=== PATIENT | female | born 1955 | race Two or more races ===

== ENCOUNTER 2021-10-02 05:30 | Day surgery (SDC) | payer OTHER ==
[~2021-10-02 05:30] MED LIST: COQ-1030 MG PO; CRESTOR20 MG PO; D3 + K2 DOTS 11 EACH PO; LABETALOL HCL200 MG PO; METFORMIN HCL1000 M2 PO; NORVASC5 MG PO; TRIBENZOR 40-51 EAC1 PO; XANAX1 MG PO; ZETIA10 MG PO; ZYLOPRIM100 MG PO
[2021-10-02] MEDS ORDERED: PERCOCET 5-3251 EACH PO (09:57)
[2021-10-02] MEDS ORDERED: POLY119PG PO (09:58)
[2021-10-02] MEDS ORDERED: NEURONTIN600 M1 PO (09:58)
== END 2021-10-02 13:25 | disposition home or self-care (01) ==
LOC: CIR.AMB 05:30 → LAB 07:00 → CIR.AMB 07:00
PROVIDERS: ATTEND Surgery
DX: K45.8 Other specified abdominal hernia without obstruction or gangrene (principal); Z20.822 Contact with and (suspected) exposure to COVID-19

== ENCOUNTER 2022-01-23 08:17 | Emergency (ER) | payer OTHER ==
[~2022-01-23] VITALS: Ht 160 cm; Wt 80.3 kg
[~2022-01-23 08:17] MED LIST changes: +NEURONTIN600 M1 PO; +PERCOCET 5-3251 EACH PO; +POLY119PG PO
[2022-01-23] MEDS ORDERED: PEPCID AC20 MG PO (21:03)
[2022-01-23] MEDS ORDERED: ZOFRAN8 MG PO (21:03)
[2022-01-23] MEDS ORDERED: CARAFATE1 GM PO (21:03)
== END 2022-01-23 21:11 | disposition home or self-care (01) ==
LOC: ER 08:17
DX: K52.9 Noninfective gastroenteritis and colitis, unspecified (principal); E11.9 Type 2 diabetes mellitus without complications; Z79.84 Long term (current) use of oral hypoglycemic drugs; Z20.822 Contact with and (suspected) exposure to COVID-19; E03.9 Hypothyroidism, unspecified; I10 Essential (primary) hypertension; F32.A Depression, unspecified; F43.20 Adjustment disorder, unspecified

== ENCOUNTER 2023-07-04 11:51 | Emergency (ER) | payer OTHER ==
[~2023-07-04] VITALS: Ht 160 cm; Wt 79.4 kg
[~2023-07-04 11:51] MED LIST changes: +CARAFATE1 GM PO; +PEPCID AC20 MG PO; +ZOFRAN8 MG PO
[2023-07-04] MEDS ORDERED: ZOLOFT100 MG PO (12:31)
[2023-07-04 13:33] LABS: HEMATOCRIT 35.3 % (36.0-45.00); HEMOGLOBIN 11.9 g/dL (12.0-15.00); MEAN CELL VOLUME 90.3 fL (80.00-100.00); MEAN CORPUSCULAR HEMOGLOBIN 30.4 pg (27.00-32.0); MEAN CORPUSCULAR HGB CONC 33.7 g/dl (32.0-36.0); PLATELET COUNT 204 K/uL (150-450); RED CELL DISTRIBUTION WIDTH 13.5 % (11.5-14.5)
[2023-07-04 14:01] LABS: ALBUMIN 4.3 gm/dL (3.4-5.0); BILIRUBIN TOTAL 0.67 mg/dL (0.3-1.2); CALCIUM 9.7 mg/dL (8.5-10.1); CREATININE SERUM 0.98 mg/dL (0.55-1.02); GFR 56.27; POTASSIUM 3.64 mEq/L (3.5-5.1); TOTAL PROTEIN 8.3 gm/dL (6.4-8.2)
== END 2023-07-04 15:28 | disposition home or self-care (01) ==
LOC: ER 11:51
PROVIDERS: General Practice
DX: K52.89 Other specified noninfective gastroenteritis and colitis (principal); E11.9 Type 2 diabetes mellitus without complications; Z79.84 Long term (current) use of oral hypoglycemic drugs; I10 Essential (primary) hypertension
CPT/HCPCS: 36415; 96365; 99284; J2405; J3490